=== PATIENT | male | born 1990 | race Two or more races ===

== ENCOUNTER 2017-02-25 15:26 | Emergency (ER) | payer MEDICAID ==
--- NOTE | 2017-02-25 15:48 | ED Physician Chart ---
Chief Complaint/HPI - Patient Information Date Seen:: 02/25/17 Time Seen:: 15:40 Chief Complaint:: Low back pain for one day. History of Present Illness:: Brought in by private auto because of low back pain for one day. Low back pain started when he lifted a car tire at home. Pain is sharp, localized, and constant. Pain can be aggravated with back movements, improved with rest. No LE weakness or numbness. No urinary or fecal incontinence or retention. Pt's last use of analgesic with Motrn at 8 am today. Allergies:: Allergies Allergy/AdvReac Type Severity Reaction Status Date / Time No Known Allergies Allergy Verified 02/25/17 15:35 Vitals:: Vital Signs - 8 hr 02/25/17 15:26 Temp 97.5 F HR 82 RR 16 BP 151/96 O2 Sat % 99 Historian:: Patient Family MD/PCP:: Dr. Acevedo LMP:: N/A Review:: Nurse's Note Reviewed Review of Systems - Review of Systems General/Constitutional: No fever, No weight loss, No weakness, No edema, No loss of appetite Skin: No skin lesions, No rash, No bruising Head: No headache, No light-headedness Eyes: No loss of vision, No pain, No diplopia ENT: No earache, No nasal drainage, No sore throat, No tinnitus Neck: No neck pain, No swelling, No stiffness, No mass noted Cardio Vascular: No chest pain, No palpitations, No edema Pulmonary: No SOB, No cough, No sputum, No wheezing GI: No nausea, No vomiting, No diarrhea, No pain G/U: No dysuria, No frequency, No hematuria Musculoskeletal: Back pain Endocrine: No polyuria, No polydipsia Psychiatric: No prior psych history Hematopoietic: No bruising, No lymphadenopathy Allergic/Immuno: No urticaria, No angioedema Neurological: No syncope, No focal symptoms, No weakness, No paresthesia, No headache, No dizziness, No confusion Past Medical History - Past Medical History Past Medical History: HTN Family History: Diabetes Melitus (father), HTN (mother) Social History: Non Smoker, Alcohol (occasional), No Drug Use, , Other ( lives with his and his child.) Surgical History: other (L knee arthoscopic surgery about a year ago.) Psychiatricy History: None Medication: Reviewed Family Medical History - Family Member Mother Living Status: Still Living Hx Family Hypertension: Yes Hx Family Diabetes: Yes Physical Exam - Physical Examination General/Constitutional: Awake, Well-developed, well-nourished, Alert, No distress, GCS 15, Non-toxic appearing, Ambulatory Other Gen/Cons comments:: Breathes comfortably, speaks clearly, and interacts normally. Head: Atraumatic Eyes: Lids, conjuctiva normal, PERRL, EOMI Skin: Nl inspection, No rash, No skin lesions, No ecchymosis, Well hydrated, No lymphadenopathy ENMT: External ears, nose nl, Nasal exam nl, Oropharynx nl Neck: Nontender, Full ROM w/o pain, No nuchal rigidity, No mass, No stridor Respiratory: Nl effort/Exclusion, Clear to Auscultation, No Wheeze/Rhonchi/Rales Cardio Vascular: RRR, No murmur, gallop, rubs GI: No tenderness/rebounding/guarding, No organomegaly, Normal BS's, Nondistended, No mass/bruits Other GI comments:: Abdomen is obese but soft. : No CVA tenderness Extremities: No tenderness or effusion, Full ROM, normal strength in all extremities, No edema, Normal digits & nails Neuro/Psych: Alert/oriented (oriented x 3), DTR's symmetric, Normal sensory exam , Normal motor strength, Judgement/insight normal, Mood normal, Normal gait, No focal deficits Other Neuro/Psych comments:: Negative SLR's bilaterally. Other Misc comments:: Tenderness at lower paralumbar region. No gross deformity, erythema, swelling, ecchymosis, or open wound. ED Septic Shock - . Is Septic Shock (SBP<90, OR Lactate>4 mmol\L) present?: No - <6hrs of presentation: Vital Signs: Vital Signs - 8 hr 02/25/17 15:26 Temp 97.5 F HR 82 RR 16 BP 151/96 O2 Sat % 99 Reassessment (Disposition) - Reassessment Reassessment:: 1740 Pt is comfortable without pain. Pt requests to go home now. Aftercare instructions have been given. Reassessment Condition:: Improved - Diagnosis Diagnosis:: Lumbar strain, stable and improved. - Aftercare/Follow up Instructions Aftercare/Follow-Up Instructions:: Refer to Discharge Instructions Notes:: May take Motrin 200 mg tab 4 tabs po q8h prn as directed. Not to take next dose at least 6 hours after Toradol was given here. May also take Tylenol 500 mg tab one tab po q6h prn pain. Warm compress applied to affected area in back for 15 minutes q2h. Back hygiene instructions given. F/U with PCP Dr. Acevedo in one day for recheck. Return to ER immediately if condition worsens or if any further questions/problems. Medication Prescribed:: None - Patient Disposition Discharge/Transfer:: Home Time:: 17:45 Condition at Disposition:: Stable, Improved
== END 2017-02-25 17:43 | disposition home or self-care (01) ==
LOC: ER 15:26
DX: S39.012A Strain of muscle, fascia and tendon of lower back, initial encounter (principal); I10 Essential (primary) hypertension; X50.9XXA Other and unspecified overexertion or strenuous movements or postures, initial encounter; Y93.89 Activity, other specified; Y92.89 Other specified places as the place of occurrence of the external cause; Y99.8 Other external cause status
CPT/HCPCS: 99283; 96372; J1885; Z7502; Z7610

== ENCOUNTER 2018-11-13 23:33 | Emergency (ER) | payer MEDICAID ==
[2018-11-14] MEDS ORDERED: Fluorescein Sodium 1 mg Ophth Strip ONE (00:52)
[2018-11-14] MEDS ORDERED: Dacriose Ophth Soln 120 mL Bottle LEFT EYE ONE (00:54)
[2018-11-14] MEDS ORDERED: Dacriose Ophth Soln 120 mL Bottle ONE (00:58)
[2018-11-14] MEDS ORDERED: Tetracaine 0.5% Ophth Soln 15 mL Soln LEFT EYE ONE (01:01)
--- NOTE | 2018-11-14 01:01 | ED Physician Chart ---
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 and some object flew i lt with eye pain here Allergies:: Allergies Allergy/AdvReac Type Severity Reaction Status Date / Time No Known Allergies Allergy Verified 02/25/17 15:35 Vitals:: Vital Signs - 8 hr 11/13/18 23:43 Temp 97.6 F HR 92 RR 15 BP 141/83 O2 Sat % 97 ED Review of Systems - Review of Systems General/Constitutional: No fever, No chills, No weight loss, No weakness, No diaphoresis, No edema, No loss of appetite Skin: No skin lesions, No rash, No bruising Head: No headache, No light-headedness Eyes: Pain ENT: No earache, No nasal drainage, No sore throat, No tinnitus Neck: No neck pain, No swelling, No thyromegaly, No stiffness, No mass noted Cardio Vascular: No chest pain, No palpitations, No PND, No orthopnea, No edema Pulmonary: No SOB, No cough, No sputum, No wheezing GI: No nausea, No vomiting, No diarrhea, No pain, No melena, No hematochezia, No constipation, No hematemesis G/U: No dysuria, No frequency, No hematuria Musculoskeletal: No bone or joint pain, No back pain, No muscle pain Endocrine: No polyuria, No polydipsia Psychiatric: No prior psych history, No depression, No anxiety, No suicidal ideation Hematopoietic: No bruising, No lymphadenopathy Allergic/Immuno: No urticaria, No angioedema Neurological: No syncope, No focal symptoms, No weakness, No paresthesia, No headache, No seizure, No dizziness, No confusion, No vertigo ED Past Medical History - Past Medical History Past Medical History: No significant medical hx Family Medical History - Family Member Mother History Unknown: Yes Living Status: Still Living Hx Family Hypertension: Yes Hx Family Diabetes: Yes ED Physical Exam - Physical Examination General/Constitutional: Well-developed, well-nourished, No distress Head: Atraumatic Eyes: Lids, conjuctiva normal Other Eyes comments:: smal speck lt eye with eye reddness swelling ENMT: External ears, nose nl Neck: Nontender Respiratory: Clear to Auscultation Cardio Vascular: No murmur, gallop, rubs GI: No tenderness/rebounding/guarding, No hernia : NL external genitalia Extremities: normal strength in all extremities Neuro/Psych: Alert/oriented Misc: Normal back ED Assessment - Assessment General Assessment: cough bronchitie Laceration Type:: None Inspection: No dirt/debris Splint Care: Splint applied ED Septic Shock - . Is Septic Shock (SBP<90, OR Lactate>4 mmol\L) present?: No - <6hrs of presentation: Vital Signs: Vital Signs - 8 hr 11/13/18 23:43 Temp 97.6 F HR 92 RR 15 BP 141/83 O2 Sat % 97 ED Reassessment (Disposition) - Reassessment Reassessment:: pain thr rur
[2018-11-14] MEDS ORDERED: TETRACAINE HCL 0.5% OPHTH SOLN 4ML BOTTLE ONE (01:04)
== END 2018-11-14 01:37 | disposition left against medical advice (07) ==
LOC: ER 23:33
DX: T15.92XA Foreign body on external eye, part unspecified, left eye, initial encounter (principal); X58.XXXA Exposure to other specified factors, initial encounter; Y93.89 Activity, other specified; Y92.89 Other specified places as the place of occurrence of the external cause; Y99.8 Other external cause status
CPT/HCPCS: Z7502